=== PATIENT | female | born 1975 | race African-American/Black ===

== ENCOUNTER 2021-04-05 04:57 | Day surgery (SDC) | payer OTHER ==
[2021-04-01 16:49] VITALS: BMI 21.7
[2021-04-05] MEDS ORDERED: LIDOCAINE HCL 1%, 10 MG/ML (20ML VIAL) ONE (13:07)
[2021-04-05] MEDS ORDERED: BUPIVACAINE HCL/PF 0.5% (5MG/ML) 10 ML VIAL ONE (13:07)
[2021-04-05] MEDS ORDERED: MIDAZOLAM HCL 2 MG/2 ML SINGLE DOSE VIAL ONE (14:20)
[2021-04-05] MEDS ORDERED: LIDOCAINE HCL 1%, 10 MG/ML (20ML VIAL) INF ONE (14:41)
[2021-04-05] MEDS ORDERED: BUPIVACAINE HCL/PF 0.5% (5MG/ML) 10 ML VIAL IJ ONE (14:41)
[2021-04-05] MEDS ORDERED: ACETAMINOPHEN INJECTION 100 ML IVPB ONE (14:46)
[2021-04-05] MEDS ORDERED: KETOROLAC TROMETHAMINE 30 MG/1 ML VIAL ONE (14:46)
[2021-04-05 17:58] VITALS: BP 137/86; PULSE 67; TEMP 98.2
== END 2021-04-05 17:10 | disposition home or self-care (01) ==
LOC: JASU-SURG 04:57
PROVIDERS: ATTEND Surgery
PROC: 0HBKXZZ Excision of Right Lower Leg Skin, External Approach (ICD-10-PCS; principal; 2021-04-05 14:00)
DX: L72.3 Sebaceous cyst (principal)
CPT/HCPCS: 81025; 88304-TC; 94760; J0131